=== PATIENT | male | born 1995 | race American Indian/Alaskan Native ===

== ENCOUNTER 2017-01-22 11:11 | Emergency (ER) | payer OTHER ==
--- NOTE | 2017-01-22 11:27 | Emergency Department Report ---
Entered by KARIE GILMAN, acting as scribe for BETHANY YOUNG NP. Stated Complaint: FACIAL SWELLING Time Seen by Provider: 01/22/17 11:19 - HPI History of Present Illness: 21 y/o male presents c/o upper lip and facial swelling that started yesterday. Pt denies dental pain or sore throat. No meds, no new exposure, abc's intact, no acute distress. no meds no history of no fam hx of no exposure no bite upper lip only abc intact sat good nad - ROS Review of Systems: as noted in HPI - Exam Vital Signs: Vital Signs 01/22/17 11:18 Temperature 98.3 F Pulse Rate 62 Respiratory 16 Rate Blood Pressure 120/64 O2 Sat by Pulse 99 Oximetry Physical Exam: as noted in HPI MSE screening note: Focused history and physical exam performed. Due to findings the following was ordered: ED Disposition for MSE Condition: Stable This documentation as recorded by the scribe,KARIE GILMAN,accurately reflects the service I personally performed and the decisions made by ,BETHANY YOUNG NP.
--- NOTE | 2017-01-22 14:00 | Emergency Department Report ---
ED ENT HPI - General Chief complaint: Pain General Stated complaint: FACIAL SWELLING Time Seen by Provider: 01/22/17 13:53 Source: patient Mode of arrival: Ambulatory Limitations: No Limitations - History of Present Illness Initial comments: PT states he noticed upper lip edema x 2 days, worse last night. PT states it feels like his L nostril is swollen. PT denies any new exposures. PT states he was at home when he noticed the edema. PT has not taken anything for the pain. MD complaint: other (facial swelling ) Onset/Timin -: Gradual, days(s) Location: upper lip Severity scale (0 -10): 0 Quality: other (pt denies pain now, states last night his upper lip was tender ) Consistency: constant Improves with: none Worsens with: other (palpation ) Associated Symptoms: denies: fever, cough, sore throat - Related Data Home Medications Medication Instructions Recorded Confirmed Last Taken No Known Home Medications [No 01/22/17 01/22/17 Unknown Reported Home Medications] Allergies Allergy/AdvReac Type Severity Reaction Status Date / Time Penicillins Allergy Unknown Verified 01/22/17 11:18 ED Dental HPI - General Chief complaint: Pain General Stated complaint: FACIAL SWELLING Time Seen by Provider: 01/22/17 13:53 Source: patient Mode of arrival: Ambulatory Limitations: No Limitations - Related Data Home Medications Medication Instructions Recorded Confirmed Last Taken No Known Home Medications [No 01/22/17 01/22/17 Unknown Reported Home Medications] Allergies Allergy/AdvReac Type Severity Reaction Status Date / Time Penicillins Allergy Unknown Verified 01/22/17 11:18 ED Review of Systems ROS: Stated complaint: FACIAL SWELLING Other details as noted in HPI Comment: All other systems reviewed and negative Constitutional: denies: chills, fever ENT: as per HPI. denies: throat pain, dental pain, congestion Gastrointestinal: denies: abdominal pain, nausea, vomiting Skin: denies: rash, change in color ED Past Medical Hx - Past Medical History Previous Medical History?: Yes - Surgical History Past Surgical History?: No - Social History Smoking Status: Current Every Day Smoker Substance Use Type: Alcohol, Marijuana - Medications Home Medications: Home Medications Medication Instructions Recorded Confirmed Last Taken Type No Known Home Medications [No 01/22/17 01/22/17 Unknown History Reported Home Medications] ED Physical Exam - General Limitations: No Limitations General appearance: alert, in no apparent distress - Head Head exam: Present: atraumatic, normocephalic, normal inspection - Eye Eye exam: Present: normal appearance, EOMI. Absent: conjunctival injection - ENT ENT exam: Present: normal orophraynx, mucous membranes moist, TM's normal bilaterally, normal external ear exam, other (mild erythema to L nare. no nasal tenderness ) - Expanded ENT Exam Expanded Mouth exam: Present: normal external inspection, other (mild edema to L upper lip). Absent: drooling, trismus Teeth exam: Present: normal inspection, dental tenderness # (tooth #9 ttp at gum line, no abscess seen or palpated ) 1 - Dental Tenderness Throat exam: Negative: tonsillar erythema - Neck Neck exam: Present: normal inspection. Absent: tenderness, lymphadenopathy - Respiratory Respiratory exam: Present: normal lung sounds bilaterally. Absent: respiratory distress, wheezes, chest wall tenderness - Cardiovascular Cardiovascular Exam: Present: regular rate, normal rhythm - Extremities Exam Extremities exam: Present: normal inspection, full ROM. Absent: tenderness - Back Exam Back exam: Present: normal inspection, full ROM - Neurological Exam Neurological exam: Present: alert, oriented X3, normal gait - Psychiatric Psychiatric exam: Present: normal affect, normal mood - Skin Skin exam: Present: warm, dry, erythema ED Course Vital Signs 01/22/17 11:18 Temperature 98.3 F Pulse Rate 62 Respiratory 16 Rate Blood Pressure 120/64 O2 Sat by Pulse 99 Oximetry - Reevaluation(s) Reevaluation #1: 01/22/17 14:13 PT aware of abnormal exam findings and need to follow up with dentist. PT has no questions at this time. - Pulse Oximetry Interpretation Digit-Finger Initial Pulse Oximetry Readin Actions Taken: none ED Medical Decision Making - Differential Diagnosis angioedema, cellulitis, abscess Critical care attestation.: If time is entered above; I have spent that time in minutes in the direct care of this critically ill patient, excluding procedure time. ED Disposition Clinical Impression: Lip edema, Pain, dental Disposition: DISCHARGED TO HOME OR SELFCARE Is pt being admited?: No Does the pt Need Aspirin: No Condition: Stable Instructions: Dental Abscess (ED) Additional Instructions: follow up with Dentist in 2-3 days - if you can not been seen by Dentist or PCP in the next 48 hours, return to ED for recheck Return to ED if worsening or concerns Take antibiotics with food Referrals: PRIMARY CAREMD [Primary Care Provider] - 3-5 Days SABRINA REEDER MD [Staff Physician] - 3-[address] [facility] [Outside] - 3-5 Days [facility] [Outside] - 3-5 Days [facility] [Outside] - 3-5 Days Time of Disposition: 14:16
[2017-01-22 14:23] VITALS: BP 118/66
== END 2017-01-22 14:22 | disposition home or self-care (01) ==
LOC: ED 11:11
DX: R22.0 Localized swelling, mass and lump, head (principal); K08.89 Other specified disorders of teeth and supporting structures; F17.200 Nicotine dependence, unspecified, uncomplicated; F12.90 Cannabis use, unspecified, uncomplicated; Z88.0 Allergy status to penicillin
CPT/HCPCS: 99282

== ENCOUNTER 2017-08-18 21:59 | Emergency (ER) | payer SELFPAY ==
[2017-08-18 22:40] LABS: Basophils % (Auto) 0.9 % (0.0-1.8); Hematocrit 47.2 % (35.5-45.6); Hemoglobin 15.7 gm/dl (11.8-15.2); Mean Corpuscular HGB Conc 33 % (32-34); Mean Corpuscular Hemoglobin 31 pg (28-32); Mean Corpuscular Volume 92 fl (84-94); Platelet Count 261 K/mm3 (140-440); Red Blood Count 5.15 M/mm3 (3.65-5.03); Red Cell Distribution Width 13.4 % (13.2-15.2); White Blood Count 6.2 K/mm3 (4.5-11.0)
[2017-08-18 22:57] LABS: Alanine Aminotransferase 41 units/L (7-56); Albumin 4.5 g/dL (3.9-5); Albumin/Globulin Ratio 1.7 %; Alkaline Phosphatase 77 units/L (35-129); Anion Gap 17 mmol/L; BUN/Creatinine Ratio 13; Blood Urea Nitrogen 10 mg/dL (9-20); Calcium 9.5 mg/dL (8.4-10.2); Carbon Dioxide 26 mmol/L (22-30); Chloride 102.9 mmol/L (98-107); Glucose 89 mg/dL (75-100); Lipase 30 units/L (13-60); Potassium 3.7 mmol/L (3.6-5.0); Sodium 142 mmol/L (137-145); Total Protein 7.2 g/dL (6.3-8.2)
[2017-08-18 23:21] LABS: Bilirubin,Urine NEG (Negative); Blood,Urine NEG (Negative); Ketones,Urine NEG (Negative); Leukocyte Esterase,Urine NEG (Negative); Mucus,Urine 3+ /HPF; Nitrite,Urine NEG (Negative); Protein,Urine <15 mg/dL mg/dL (Negative); WBC,Urine < 1.0 /HPF (0.0-6.0)
[2017-08-19] MEDS ORDERED: PHENERGAN PO ONE (06:44)
[2017-08-19] MEDS ORDERED: LIDOCAINE VISCOUS 2% PO ONE (06:45)
[2017-08-19] MEDS ORDERED: ALUM-MAG HYDROX-SIMETH 200-200-20MG/5ML PO ONE (06:45)
--- NOTE | 2017-08-19 07:29 | Emergency Department Report ---
ED General Adult HPI - General Chief complaint: Abdominal Pain Stated complaint: ABD PAIN Time Seen by Provider: 08/19/17 06:44 Source: patient Mode of arrival: Ambulatory Limitations: No Limitations - History of Present Illness Initial comments: Patient is a 21-year-old male no slipping past medical history who presents with right upper quadrant abdominal pain has been going on for a couple days. Patient states the pain is a 4 out of 10 and is not constant it is intermittent. Patient states that he feels a burning type of pain. Patient states she's had this pain before but felt discomfort and nauseous. Patient denies having any chest pain or shortness of breath. Patient denies having any vomiting or diarrhea. Patient states that he is currently at the moment he feels fine and would like to go home. Patient denies having any fevers or chills. Severity scale (0 -10): 4 - Related Data Previous Rx's Medication Instructions Recorded Last Taken Type Clindamycin [Clindamycin CAP] 300 mg PO Q8H #30 cap 01/22/17 Unknown Rx Allergies Allergy/AdvReac Type Severity Reaction Status Date / Time Penicillins Allergy Unknown Verified 08/18/17 22:16 ED Review of Systems ROS: Stated complaint: ABD PAIN Other details as noted in HPI Constitutional: denies: chills, fever Eyes: denies: eye pain, eye discharge, vision change ENT: denies: ear pain, throat pain Respiratory: denies: cough, shortness of breath, wheezing Cardiovascular: denies: chest pain, palpitations Endocrine: no symptoms reported Gastrointestinal: abdominal pain. denies: nausea, diarrhea Genitourinary: denies: urgency, dysuria Musculoskeletal: denies: back pain, joint swelling, arthralgia Skin: denies: rash, lesions Neurological: denies: headache, weakness, paresthesias Psychiatric: denies: anxiety, depression Hematological/Lymphatic: denies: easy bleeding, easy bruising ED Past Medical Hx - Past Medical History Previous Medical History?: No - Surgical History Past Surgical History?: No - Social History Smoking Status: Current Every Day Smoker Substance Use Type: None - Medications Home Medications: Home Medications Medication Instructions Recorded Confirmed Last Taken Type Clindamycin [Clindamycin CAP] 300 mg PO Q8H #30 cap 01/22/17 Unknown Rx ED Physical Exam - General Limitations: No Limitations General appearance: alert, in no apparent distress - Head Head exam: Present: atraumatic, normocephalic - Eye Eye exam: Present: normal appearance - ENT ENT exam: Present: mucous membranes moist - Neck Neck exam: Present: normal inspection - Respiratory Respiratory exam: Present: normal lung sounds bilaterally. Absent: respiratory distress - Cardiovascular Cardiovascular Exam: Present: regular rate, normal rhythm. Absent: systolic murmur, diastolic murmur, rubs, gallop - GI/Abdominal GI/Abdominal exam: Present: soft, normal bowel sounds - Rectal Rectal exam: Present: deferred - Extremities Exam Extremities exam: Present: normal inspection - Back Exam Back exam: Present: normal inspection - Neurological Exam Neurological exam: Present: alert, oriented X3 - Psychiatric Psychiatric exam: Present: normal affect, normal mood - Skin Skin exam: Present: warm, dry, intact, normal color. Absent: rash ED Course Vital Signs 08/18/17 08/18/17 08/19/17 22:10 22:16 02:55 Temperature 98.0 F 98 F 98.2 F Pulse Rate 77 76 60 Respiratory 18 99 H 18 Rate Blood Pressure 131/78 131/78 135/51 O2 Sat by Pulse 99 100 Oximetry 08/19/17 08/19/17 08/19/17 04:57 05:00 06:00 Temperature Pulse Rate Respiratory 16 Rate Blood Pressure 120/60 119/72 O2 Sat by Pulse 98 96 Oximetry 08/19/17 07:00 Temperature Pulse Rate Respiratory Rate Blood Pressure 112/65 O2 Sat by Pulse 92 Oximetry ED Medical Decision Making - Lab Data Result diagrams: 08/18/17 22:20 08/18/17 22:20 Lab Results 08/18/17 08/18/17 08/18/17 Range/Units 22:20 22:20 Unknown WBC 6.2 (4.5-11.0) K/mm3 RBC 5.15 H (3.65-5.03) M/mm3 Hgb 15.7 H (11.8-15.2) gm/dl Hct 47.2 H (35.5-45.6) % MCV 92 (84-94) fl MCH 31 (28-32) pg MCHC 33 (32-34) % RDW 13.4 (13.2-15.2) % Plt Count 261 (140-440) K/mm3 Lymph % (Auto) 35.7 H (13.4-35.0) % [place] % (Auto) 8.0 H (0.0-7.3) % Eos % (Auto) 4.0 (0.0-4.3) % Baso % (Auto) 0.9 (0.0-1.8) % Lymph # 2.2 (1.2-5.4) K/mm3 [place] # 0.5 (0.0-0.8) K/mm3 Eos # 0.3 (0.0-0.4) K/mm3 Baso # 0.1 (0.0-0.1) K/mm3 Seg Neutrophils % 51.4 (40.0-70.0) % Seg Neutrophils # 3.2 (1.8-7.7) K/mm3 Sodium 142 (137-145) mmol/L Potassium 3.7 (3.6-5.0) mmol/L Chloride 102.9 (98-107) mmol/L Carbon Dioxide 26 (22-30) mmol/L Anion Gap 17 mmol/L BUN 10 (9-20) mg/dL Creatinine 0.8 (0.8-1.5) mg/dL Estimated GFR > 60 ml/min BUN/Creatinine Ratio 13 % Glucose 89 (75-100) mg/dL Calcium 9.5 (8.4-10.2) mg/dL Total Bilirubin 0.40 (0.1-1.2) mg/dL AST 29 (5-40) units/L ALT 41 (7-56) units/L Alkaline Phosphatase 77 (35-129) units/L Total Protein 7.2 (6.3-8.2) g/dL Albumin 4.5 (3.9-5) g/dL Albumin/Globulin Ratio 1.7 % Lipase 30 (13-60) units/L Urine Color Yellow (Yellow) Urine Turbidity Clear (Clear) Urine pH 6.0 (5.0-7.0) Ur Specific [place] 1.030 (1.003-1.030) Urine Protein <15 mg/dl (Negative) mg/dL Urine Glucose (UA) Neg (Negative) mg/dL Urine Ketones Neg (Negative) mg/dL Urine Blood Neg (Negative) Urine Nitrite Neg (Negative) Urine Bilirubin Neg (Negative) Urine Urobilinogen 2.0 (<2.0) mg/dL Ur Leukocyte Esterase Neg (Negative) Urine WBC (Auto) < 1.0 (0.0-6.0) /HPF Urine RBC (Auto) 1.0 (0.0-6.0) /HPF Urine Mucus 3+ /HPF - Medical Decision Making Chief medical diagnosis: GERD Differential diagnosis: Gastritis, UTI, electrolyte abnormality, cholelithiasis I will get CBC, CMP, GI cocktail, urinalysis Patient laboratory findings are unremarkable patient's findings are most concerning for GERD or just right upper quadrant pain with no origin. Patient has no Piemntel sign so it's unlikely he has severe gallbladder pathology. Patient's able to tolerate oral and has no pain. I will send patient home with instructions to follow up with a primary care doctor. Patient agrees to plan an additional verbal discharge instructions were given. Critical care attestation.: If time is entered above; I have spent that time in minutes in the direct care of this critically ill patient, excluding procedure time. ED Disposition Clinical Impression: RUQ abdominal pain Disposition: DC-01 TO HOME OR SELFCARE Is pt being admited?: No Does the pt Need Aspirin: No Condition: Stable Instructions: Acute Abdominal Pain (ED) Referrals: ORA CHAVEZ MD [Staff Physician] - 3-5 Days Forms: Work/School Release Form(ED)
[2017-08-19 08:10] VITALS: BP 112/64
== END 2017-08-19 08:00 | disposition home or self-care (01) ==
LOC: ED 21:59
DX: R10.11 Right upper quadrant pain (principal); R11.0 Nausea; F17.200 Nicotine dependence, unspecified, uncomplicated; Z88.0 Allergy status to penicillin
CPT/HCPCS: 36415; 80053; 81001; 83690; 85025; 99283; Q0169